=== PATIENT | male | born 1985 | race Caucasian/White ===

== ENCOUNTER 2023-12-25 11:16 | Day surgery (SDC) | payer SELFPAY ==
[~2023-12-25 11:16] MED LIST: Albuterol 0.083% 2.5 MG/3 ML Neb Soln NEB PRN; HYDROmorphone 1 MG/ML Syringe IVPUSH PRN; Metoclopramide 10 MG/2 ML SDV IVPUSH PRN; Morphine 2 MG/ML SYRINGE IVPUSH PRN; Naloxone 0.4 MG/ML SDV IVPUSH PRN; Ondansetron 4 MG/2 ML SDV IVPUSH PRN; Phenylephrine HCl In 0.9% NaCl 1 MG/10 ML Syringe IVPUSH PRN; ceFAZolin 2 GM in Sodium Chloride 0.9% 50 ML IV ONE; fentaNYL 50 MCG/ML SDV IVPUSH PRN
[2023-12-25] MEDS ORDERED: ceFAZolin 1 GM Vial ONE (11:22)
[2023-12-25] MEDS ORDERED: Bupivacaine 0.5% 30 ML SDV ONE (11:22)
[2023-12-25] MEDS ORDERED: Lidocaine 2% 11 ML Jelly Filled Syringe ONE (11:44)
[2023-12-25] MEDS ORDERED: fentaNYL 250 MCG/5 ML SDV ONE (11:48)
[2023-12-25] MEDS ORDERED: Morphine 10 MG/ML SDV ONE (11:48)
[2023-12-25] MEDS ORDERED: Propofol 200 MG/20 ML SDV ONE (11:48)
[2023-12-25] MEDS ORDERED: Ketorolac 30 MG/ML SDV ONE ×3 (11:49→11:55)
[2023-12-25] MEDS ORDERED: Ropivacaine 0.5% 5 MG/ML 30 ML SDV ONE (11:52)
[2023-12-25] MEDS ORDERED: Famotidine 20 MG/2 ML SDV ONE (11:53)
[2023-12-25] MEDS ORDERED: Ondansetron 4 MG/2 ML SDV ONE (11:55)
[2023-12-25] MEDS ORDERED: Dexamethasone 4 MG/ML 5 ML MDV ONE (11:55)
[2023-12-25] MEDS: Lactated Ringers 1,000 ML IV SCH (12:10)
[2023-12-25] MEDS ORDERED: Ketamine HCL/NACL, ISO-OSM 50 MG/5 ML Syringe ONE (12:16)
[2023-12-25] MEDS ORDERED: ceFAZolin 2 GM Vial ONE (12:43)
[2023-12-25] MEDS ORDERED: ePHEDrine 50 MG/ML SDV ONE (13:27)
[2023-12-25] MEDS ORDERED: Acetaminophen/HYDROcodone 325-5 MG Tab PO PRN ×2 (13:58→14:18)
[2023-12-25] MEDS ORDERED: Morphine 2 MG/ML SYRINGE IVPUSH PRN (13:58)
[2023-12-25] MEDS ORDERED: Lactated Ringers 1,000 ML IV SCH (14:00)
== END 2023-12-25 15:05 | disposition home or self-care (01) ==
LOC: MW.SDS 11:16
PROVIDERS: ATTEND Surgery
DX: K40.90 Unilateral inguinal hernia, without obstruction or gangrene, not specified as recurrent (principal); F17.210 Nicotine dependence, cigarettes, uncomplicated
CPT/HCPCS: 49505; 64488; A9270; C1781; J0665; J0690; J1100; J1885; J2272; J2405; J2704; J2795; J3010; J3490; J7120; 00830; 64486